=== PATIENT | male | born 1960 | race Caucasian/White ===

== ENCOUNTER 2022-07-10 22:51 | Emergency (ER) | payer MEDICARE, MEDICAID ==
[~2022-07-10] VITALS: Ht 167.6 cm; Wt 76.4 kg
[2022-07-10 22:58] VITALS: BP 136/81
== END 2022-07-11 00:51 | disposition left against medical advice (07) ==
LOC: ER 22:53
DX: Z01.84 Encounter for antibody response examination (principal); Z53.21 Procedure and treatment not carried out due to patient leaving prior to being seen by health care provider